=== PATIENT | male | born 1960 | race Two or more races ===

== ENCOUNTER 2025-03-02 12:02 | Inpatient (IN) | payer BC, MEDICAID ==
[~2025-03-02] VITALS: Ht 170.2 cm; Wt 70.0 kg
[~2025-03-02 12:02] MED LIST: ASPI-4 PO; IBUP-1984 PO
[2025-03-02 13:58] LABS: MEAN PLATELET VOLUME 9.7 FL (7.4-10.4); RED CELL DISTRIBUTION WIDTH 15.4 % (11.5-14.5)
[2025-03-02 14:07] LABS: CREATININE 0.82 MG/DL (0.60-1.10); TOTAL CARBON DIOXIDE 26.6 MMOL/L (24-32); eCRCL 86 ML/MIN; eGFR > 90 ML/MIN
[2025-03-02] MEDS ORDERED: iohexol 300mg/ml 100ml inj. ONE (14:10)
--- NOTE | 2025-03-02 14:42 | RADIOLOGY REPORT ---
Indication: Diffuse ABD pain and distension. Technique: CT axial images of the abdomen and pelvis are obtained with intravenous contrast. Coronal and sagittal reformats were obtained. Radiation Dose Information: CTDI volume is 26 mGy. Dose-length product is 1364 mGy*cm Comparison: None FINDINGS: Heart size within normal limits. Moderate right and small left pleural effusions Adrenal glands unremarkable. Spleen is enlarged measuring 21 cm craniocaudal. Cirrhotic morphology liver. Recanalized umbilical vein. Severe gastric wall thickening. Kidneys demonstrate no hydronephrosis. m extensive mesenteric conglomerate lymphadenopathy measuring 15.2 x 11.5 by 6.7 cm. Peritoneal carcinomatosis/ omental caking. Moderate volume of ascites fluid. Colonic diverticular disease. Moderate volume stool in the colon. Abdominal aortic atherosclerotic disease. Coalesce and retroperitoneal lymphadenopathy encasing the aorta and IVC. Bladder is partially distended. Right inguinal hernia containing ascites fluid measuring 7.4 x 5.2 cm. Soft tissue edema/anasarca. Moderate bilateral sacroiliac degenerative joint disease. Moderate thoracolumbar degenerative disc disease. IMPRESSION: Extensive conglomerate mesenteric lymphadenopathy, retroperitoneal lymphadenopathy, omental caking and peritoneal carcinomatosis, consistent with malignancy . Correlate for prior malignancy site. Recommend oncology consultation. Diffuse severe gastric wall thickening which could represent primary gastric neoplasm /gastric lymphoma. Recommend GI consultation. Massive splenomegaly. Liver capsule nodular morphology could represent sequela of cirrhosis. Sequela of portal hypertension including recanalized umbilical vein. Moderate right and small left pleural effusions. Soft tissue edema/ anasarca. Other findings as described.
[2025-03-02 14:46] LABS: LYMPHOCYTES % (MANUAL) 40.0 % (21-51); MONOCYTES % (MANUAL) 4.0 % (2-12); NEUTROPHILS % (MANUAL) 28.0 % (42-75); REACTIVE LYMPHOCYTES % 28.0 % (0-0)
[2025-03-02 14:47] LABS: PLATELET ESTIMATE NORMAL
--- NOTE | 2025-03-02 15:37 | Physician Documentation ---
History of Present Illness Chief Complaint: Abdominal Pain Stated Complaint: UPPER ABDOMINAL DISTENTION Time Seen by MD: 13:18 Primary Medical Doctor: No PMD Source: patient Mode of Arrival: POV, Ambulatory Exam Limitations: no limitations HPI Mr. Navas is a 64 y/o male who presents with c/o ABD pain and distention. He states that he has noticed he abdomen becoming more and more distended over the past 3-4 months. He also reports that he has loss 60 pounds (210 --> 150) over the past 4 months. He denies N/V/D. No BRBPR or melena. No recent trauma. No recent ABD trauma. No history of recent heavy alcohol use. No dysuria/hematuria. Medication Reconciliation Allergies: Coded Allergies: acetaminophen (Unverified Adverse Reaction, Severe, PARANOIA, 01/23/15) hydrocodone (Unverified Adverse Reaction, Severe, PARANOIA, 01/23/15) Scheduled Ibuprofen* (Motrin*), 600 MG PO DAILY, (Reported) Scheduled PRN Aspirin (Coated Aspirin), 325 MG PO DAILY PRN for pain, (Reported) Past Medical History Past Medical History: Diabetes Past Surgical History: no surgical history Alcohol Use: None Review of Systems All Other Systems at this time: Reviewed and Negative ROS As stated above in the HPI, otherwise all systems are reviewed and negative. Physical Exam Vital Signs: RN Vital Signs have been reviewed: Yes, Temperature: 98.1, Source: Temporal, Heart Rate: 70, Respiratory Rate: 16, BP: 144/84, Pulse Oximetry: 99, Weight: 70.000 Oxygen Flow Rate: 0 Physical Exam VITALS: Reviewed and as above. GENERAL: Alert, no apparent distress. HEENT: Normocephalic, atraumatic, PERRL, EOMI, dry mucosa, no erythema. No scleral icterus. RESPIRATORY: Lungs clear, normal breath sounds, no respiratory distress. CHEST: No accessory muscle use, no retractions CV: Regular rate, rhythm, no edema, no murmur, No: JVD GI: Significant ABD distention. Distant bowel bounds. No rebounding or guarding. BACK: No CVA tenderness, or swelling MUSCULOSKELETAL 2+ pitting lower extremity edema. SKIN: Warm and dry, no rash NEURO: Oriented x4, No motor or sensory deficit PSYCH: Normal mood and affect, no agitation Progress Results/Orders Results/Orders Orders - CLOTILDE PERAZA MD Urinalysis, Cult If Indicated (03/02/25 13:19) Cbc/Diff (03/02/25 13:19) Man Diff (03/02/25 13:30) Ct Abdomen Pelvis (03/02/25 14:01) Pathology Review (03/02/25 13:30) Completed Orders - CLOTILDE PERAZA MD BMP (03/02/25 13:19) Lipase (03/02/25 13:19) CMP (03/02/25 13:19) Ct Abdomen Pelvis (03/02/25 14:01) Iohexol 300mg/Ml 100ml Inj. (Omnipaque-3 (03/02/25 14:10) Vital Signs 03/02/25 03/02/25 03/02/25 03/02/25 12:11 12:15 13:13 13:15 Temp 98.1 Pulse 90 73 67 Resp 16 16 20 B/P (MAP) 122/92 131/83 (99) 131/83 (99) Pulse Ox 97 98 97 O2 Flow Rate 0 0 0 03/02/25 14:15 Pulse 70 Resp 16 B/P (MAP) 144/84 (104) Pulse Ox 99 O2 Flow Rate 0 Laboratory Tests Test 03/02/25 13:30 White Blood Count 13.4 H Red Blood Count 5.19 Hemoglobin 14.4 Hematocrit 44.6 Mean Corpuscular Volume 85.9 Mean Corpuscular Hemoglobin 27.7 Mean Corpuscular Hemoglobin Concent 32.2 L Red Cell Distribution Width 15.4 H Platelet Count 182 Mean Platelet Volume 9.7 Neutrophils (%) (Auto) 30.5 L Lymphocytes (%) (Auto) 63.5 H Monocytes (%) (Auto) 4.7 Eosinophils (%) (Auto) 0.7 Basophils (%) (Auto) 0.6 Neutrophils # (Auto) 4.1 Lymphocytes # (Auto) 8.5 H Monocytes # (Auto) 0.6 Eosinophils # (Auto) 0.1 Basophils # (Auto) 0.1 CBC Comment Differential Total Cells Counted 100 Neutrophils % (Manual) 28.0 L Lymphocytes % (Manual) 40.0 Monocytes % (Manual) 4.0 Reactive Lymphocytes 28.0 H Smudge Cells 1+ Platelet Estimate Normal Red Blood Cell Morphology Normal Basophilic Stippling Sodium Level 146 H Potassium Level 3.8 Chloride Level 112 H Carbon Dioxide Level 26.6 Anion Gap 7 L Blood Urea Nitrogen 19 H Creatinine 0.82 Estimated GFR/1.73 m2 > 90 BUN/Creatinine Ratio 23.2 H Glucose Level 94 Calcium Level 8.4 L Total Bilirubin 0.4 Aspartate Amino Transf (AST/SGOT) 31 Alanine Aminotransferase (ALT/SGPT) 8 L Alkaline Phosphatase 61 Total Protein 6.2 L Albumin 2.6 L Globulin 3.6 Albumin/Globulin Ratio 0.7 L Lipase 16 Chemistry Comments Medical Decision Making Differential Dx:Considerations: Include: AAA, Aortic dissection, Appendicitis, Bowel obstruction, Constipation, Diverticular disease, Hernia, Inflammatory BD, Ischemic bowel, Pancreatitis, Urinary tract infection Additional Comments While here in the ED, he remained hemodynamically normal with ABC's intact and in NAD. He is afebrile and nontoxic. I reviewed his labs and there are no significant gross abnormalities. LFT's and lipase normal. Normal renal function. My concern is for malignancy so sent for CT ABD/Pelvis. CT with findings concerning for malignancy. Will be updated for further work-up. Departure Disposition: ADMITTED INPATIENT Admitted to Inpatient Unit: yes, to hospitalist Impression: Primary Impression: Abdominal distension Additional Impressions: Ascites Anasarca Abdominal pain Condition: Stable Discharge Instructions: Abdominal Pain (Nonspecific) Referrals: NO PRIMARY CARE PROVIDER (PCP) Education Educated: Patient Educated regarding: diagnosis, treatment Signature Scribe Signature: N/A Attestation: N/A CLOTILDE PERAZA MD Mar 02, 2025 15:37
[2025-03-02] MEDS ORDERED: ondansetron 4mg rapidly disintigrating tab PO PRN (15:40)
[2025-03-02] MEDS ORDERED: morphine 4 MG/ML inj SYRINge IV PRN (15:40)
[2025-03-02] MEDS ORDERED: magnesium sulf-water 4G/100mL 100 ML IV PRN (15:40)
[2025-03-02] MEDS ORDERED: magnesium hydroxide 30ml (MOM) UD suspension PO PRN (15:40)
[2025-03-02] MEDS ORDERED: bisacodyl 10mg suppository rectal RC PRN (15:40)
[2025-03-02] MEDS ORDERED: ondansetron/PF 4mg/2ml inj IV PRN (15:40)
[2025-03-02] MEDS ORDERED: magnesium Cl slow-release 64mg tablet PO PRN (15:40)
[2025-03-02] MEDS ORDERED: mag hydrox/Alum hydrox/simeth 30ml oral suspension PO PRN (15:40)
[2025-03-02] MEDS ORDERED: magnesium sulf-water 2g/50mL 50 ML IV PRN (15:40)
[2025-03-02] MEDS ORDERED: potassium Cl 20 mEq SR tablet PO PRN ×2 (15:40)
[2025-03-02] MEDS ORDERED: potassium Cl 40MEQ/1/2NS 520ml 520 ML IV PRN (15:40)
[2025-03-02] MEDS ORDERED: HYDROmorphone inj. 0.5 MG/0.5 ML DISP.SYRIN IV PRN (15:40)
[2025-03-02 16:12] LABS: APTT 26 SECONDS (22-32); INR 1.1 INR
[2025-03-02] MEDS: CefTRIAXone/D5W-Rocephin 1gm 50 ML IV SCH (16:12)
[2025-03-02 16:21] LABS: LACTATE DEHYDROGENASE 292 U/L (85-227); PHOSPHORUS 4.4 MG/DL (2.3-4.5); PRO BRAIN NATRIURETIC PEPTIDE 497 PG/ML (0-125)
[2025-03-02 16:39] LABS: ABSOLUTE RETICS # 30600.0 /CUMM (23000-93000)
--- NOTE | 2025-03-02 16:41 | HISTORY AND PHYSICAL ---
History & Physical Providers to CC ~ chief complaint, abdominal distention History of Present Illness Reason for Admit\Complaint: As above History of Present Illness Mr. Navas is a 64 y/o male, relatively in good health previously, on no home medications, except history of chronic tobacco abuse including currently, and history of hypertension presented today to emergency department chief complaint abdominal distention; in addition this is the patient who presents with c/o ABD pain and distention. He states that he has noticed he abdomen becoming more and more distended over the past 3-4 months. He also reports that he has loss 60 pounds (210 --> 150) over the past 4 months. He denies N/V/D. No BRBPR or melena. No recent trauma. No recent ABD trauma. No history of recent heavy alcohol use. No dysuria/hematuria. Emergency department he was evaluated by physician, was diagnosed with a anasarca, peritoneal carcinomatosis, multiple abdominal lymphadenopathy, gastric neoplasm rule out, massive splenomegaly, liver cirrhosis, portal hypertension, bilateral pleural effusion right more than left, hypernatremia, hypertension, and decision was made to admit patient for further evaluation treatment. No additional complaint or concern. Allergies: Coded Allergies: acetaminophen (Unverified Adverse Reaction, Severe, PARANOIA, 01/23/15) hydrocodone (Unverified Adverse Reaction, Severe, PARANOIA, 01/23/15) Active prescriptions I reviewed reconciled Home Medications Home Medications Active Reported Coated Aspirin (Aspirin) 325 Mg Tablet 325 Mg PO DAILY PRN Motrin* (Ibuprofen) 400 Mg Tablet 600 Mg PO DAILY Past Medical History Past Medical History As in HPI Past Surgical History Surgical History Comment As in HPI Past Social History Social History Comment Deny illicit drug use, no alcohol use positive for chronic tobacco abuse including currently, live with the family good social support Health Maintenance Health Maintenance Noncontributory ROS ROS Constitutional : no fever , no chills, or weakness. No diaphoresis. Allergic/Immunologic, no lymphadenopathy, no hives, no skin eruptions. Eyes, no recent visual changes, no eye pain, no photophobia. Ears, nose, mouth, throat, no sore throat, no nosebleed, no ear pain. Cardiovascular, no palpitations, skipped beats, chest pain, no peripheral edema, Respiratory, no dyspnea, orthopnea, cough, hemoptysis, chest wall pain. Gastrointestinal, no abdominal pain, nausea, vomiting, constipation or diarrhea. Positive for abdominal distention : no dysuria, hematuria, pelvic pain, urethral d/c. Endocrine, no polyuria, polydipsia, recent unintentional weight gain or loss. Hematologic/Lymphatic, no petechiae, no enlarged lymph nodes, no bone pain. Integumentary, no rash, no skin lesions, Musculoskeletal, no muscle aches, or pain, no muscle cramps, no recent change in gait, positive for bilateral lower extremity edema Neurological, no dizziness, no headache, no syncope, no paresthesia. Psychiatric, no delusions, visual hallucinations, or hearing hallucinations. ROS - in rest is as in HPI. Exam Vitals: Vital Signs Date Time Temp Pulse Resp B/P (MAP) Pulse Ox O2 Delivery O2 Flow Rate FiO2 03/02/25 14:15 70 16 144/84 (104) 99 0 03/02/25 12:11 98.1 Vital signs, stable ,afebrile. Pulse Oximetry reflects adequate oxygenation. BMI is 24, weight 70 kg General: well developed, well nourished. Awake , alert, and oriented x4, resting comfortably in the bed, in no acute distress . Skin: Warm, dry, no pallor, no rash or petechiae. HEENT: Atraumatic, normocephalic, EOMI, anicteric sclera B; pink conjunctiva; PERRLA, normal oropharynx, moist oral and nasal mucosa. Tympanic membrane , nose , throat clear. Neck: Trachea midline. Supple, full range of motion, no JVD, bruit , hepatojugular reflex , lymphadenopathy or masses, or other lesions Cardiac: Regular rhythm, regular rate no murmurs, rubs, or gallops. Normal S1 and S2, no S3 noticed. PMI is normal. Respiratory: Equal breath sounds bilaterally, no tachypnea; lungs clear to auscultation bilaterally, no wheezing ,rub or rales, or crackles. Chest wall is symmetric and without deformity. No signs of trauma. Chest wall is nontender. No signs of respiratory distress. Resonance is normal upon percussion bilaterally. Gastrointestinal: Abdomen symmetric, distended, soft, non-tender, normal bowel sounds x4 quadrant, normoactive, no hepatosplenomegaly , no masses , no bruit, no flank pain bilaterally. No voluntary guarding, rebound, or rigidity. No tenderness to percussion. No pulsatile masses. Equal femoral pulses. No Sy's sign or McBurney point tenderness. Back; no CVA tenderness bilaterally, no deformities. Neck and back are without deformity as well. No tenderness noted on palpation of the spinous processes. Spinous processes are midline. Cervical, thoracic, and lumbar paraspinal muscles are not tender and are without spasm. : normal external genitalia, without lesions, swelling, masses or tenderness. Musculoskeletal: Extremities, normal range of motion, non-tender, muscle strength 5/5 x 4. Negative Homans signs bilaterally on lower extremity. Distal pulses full symmetrical, no clubbing, cyanosis; bilateral lower extremity + four edema up to the thigh Neurological: Speech is clear, alert, and oriented x 4. No motor or sensory deficit, deep tendon reflexes normal, cerebellar intact. Cranial nerves II-XII intact. Psych: Alert and or appropriate, normal affect. Vascular: Good distal pulses, which are equal x4; capillary refill less than 2 seconds. Lymphatic, no lymphadenopathy. Diagnostic Data Last Recorded Lab Results: 03/02/25 1330 03/02/25 1330 Diagnostic Data: Laboratory Tests Test 03/02/25 13:30 Prothrombin Time 10.9 SECONDS (9.0-12.0) INR International Normalized Ratio 1.1 INR Activated Partial Thromboplast Time 26 SECONDS (22-32) D-Dimer Comment Coagulation Comments Advance Care Planning Advanced Care plannin - 30 Minutes Additional Plan Assessment Peritoneal carcinomatosis Anasarca Multiple abdominal lymphadenopathy Gastric neoplasm, rule out lymphoma Massive splenomegaly Liver cirrhosis associated with portal hypertension Bilateral pleural effusion right more than left Leukocytosis rule out sepsis Hyper natremia Hypertension fair control Plan IV Lasix, antibiotics CT of the chest pending additional lab work pending bilateral lower extremity ultrasound pending Blood culture sensitivity Consulted for 5 minutes to stop using tobacco patient agrees started to nicotine patch GI doctor consult I reconciled home medications DVT gastropathy prophylaxis addressed Sepsis Screening Reassessment Date: Mar 02, 2025 Date of Service: Mar 02, 2025 Billing Provider: RITCHIE HAWKINS MD Common Visit Codes: 69741-[id number] INP/OBS CARE (HIGH) Secondary Visit Codes: 13450-OBIYC CHNG SMOKING 3-10M, [id number] CARE PLAN 30 MINUTES RITCHIE HAWKINS MD Mar 02, 2025 16:41
[2025-03-02 16:45] LABS: LEUKOCYTE ESTERASE ,URINE NEGATIVE (Neg); NITRITES, URINE NEGATIVE (Neg); OCCULT BLOOD,URINE NEGATIVE (Neg)
[2025-03-02 16:50] LABS: UA COLLECTION TYPE NON-SPECIFIED
[2025-03-02 16:54] LABS: URINE AMPHETAMINE SCREEN NEGATIVE (Neg); URINE BARBITUATE SCREEN NEGATIVE (Neg); URINE BENZODIAZEPINES SCREEN NEGATIVE (Neg); URINE CANNABINOID SCREEN NEGATIVE (Neg); URINE COCAINE SCREEN NEGATIVE (Neg); URINE METHADONE SCREEN NEGATIVE (Neg); URINE OPIATE SCREEN NEGATIVE (Neg); URINE PHENCYCLIDINE SCREEN NEGATIVE (Neg)
--- NOTE | 2025-03-02 17:01 | RADIOLOGY REPORT ---
EXAM: CT CT CHEST INDICATION: Distant MT, gastrc CA TECHNIQUE: Noncontrast axial images of the chest have been obtained along with coronal and sagittal reformatted images. All CT scans at this facility use dose modulation, iterative reconstruction, and/or weight based dosing when appropriate to reduce radiation dose to as low as reasonably achievable. COMPARISON: None FINDINGS: LOWER NECK: Unremarkable LYMPH NODES/MEDIASTINUM: Large right lower paratracheal lymph node, 2 x 1.6 cm. CARDIOVASCULAR: Normal cardiac size. Small pericardial effusion. No aneurysmal dilatation of the great vessels. No significant coronary artery calcifications. UPPER ABDOMEN: Significant circumferential wall thickening of the stomach compatible with neoplastic involvement and correlate for linitis plastica. Splenomegaly phleboliths in the pelvis. refer to concurrent CT abdomen pelvis for further description MUSCULOSKELETAL: No acute fracture or aggressive focal osseous lesion. CHEST WALL: Unremarkable. LUNG PARENCHYMA/PLEURAL SPACE: Small to medium right-sided and trace left pleural effusions. Peribronchial thickening in bilateral lung bases. No consolidation. Compressive atelectasis in bilateral lung bases. IMPRESSION: 1. Significant circumferential wall thickening of the stomach compatible with neoplastic involvement and correlate for linitis plastica. 2. Small to medium right-sided and trace left pleural effusions. 3. Peribronchial thickening in bilateral lung bases. 4. Large right lower paratracheal lymph node.
[2025-03-02 17:08] LABS: HIV ANTIBODY 1&2 RAPID NON-REACTIVE (Neg)
--- NOTE | 2025-03-02 19:13 | VASCULAR REPORT ---
CLINICAL HISTORY: Left leg swelling TECHNIQUE: Color and duplex doppler imaging of the bilateral lower extremity veins was performed. Vessel compression if possible was also performed. WID: COMPARISON: None FINDINGS: Right Lower Extremity: Right common femoral vein: Normal compressibility and flow. Right femoral vein: Normal compressibility and flow. Right popliteal vein: Normal compressibility and flow. Proximal calf veins are normally compressible. Left Lower Extremity: Left common femoral vein: Normal compressibility and flow. Left femoral vein: Normal compressibility and flow. Left popliteal vein: Normal compressibility and flow. Proximal calf veins are normally compressible. Enlarged left inguinal lymph node which is Reactive appearing measured 5.5 x 1.4 x 2.9 cm. Subcutaneous edema in the bilateral lower extremities in the calves. IMPRESSION: 1. NO SONOGRAPHIC EVIDENCE FOR DEEP VENOUS THROMBOSIS IN THE BILATERAL LOWER EXTREMITY VEINS. 2. Subcutaneous edema in the bilateral calves.
[2025-03-02 20:00] VITALS: BP 109/65; PULSE 57; RESP 18; TEMP 98; O2SAT 95
[2025-03-02] MEDS: K and/or MAG REPLACEMENT MC SCH (21:28)
[2025-03-02 22:00] VITALS: BP 110/66; PULSE 58; RESP 18; TEMP 98; O2SAT 96
[2025-03-02] MEDS: docusate sod 100mg capsule PO SCH (22:13)
[2025-03-03] VITALS (13 sets, daily range): BP systolic 97–123; BP diastolic 59–78; PULSE 50–84; RESP 15–20; TEMP 97.3–97.9; O2SAT 94–99
[2025-03-03] MEDS ORDERED: IBUP-2697 PO (00:43)
[2025-03-03] MEDS ORDERED: ONDA-103 PO (01:00)
[2025-03-03 06:50] LABS: MEAN PLATELET VOLUME 9.4 FL (7.4-10.4); RED CELL DISTRIBUTION WIDTH 15.2 % (11.5-14.5)
[2025-03-03 07:14] LABS: CHOL/HDL RATIO 5.0 (0.00-4.99); CREATININE 0.85 MG/DL (0.60-1.10); LDL CHOLESTEROL 86 MG/DL (50-100); TOTAL CARBON DIOXIDE 28.4 MMOL/L (24-32); eCRCL 83 ML/MIN; eGFR > 90 ML/MIN
[2025-03-03] MEDS ORDERED: nicotine 14mg patch - 24hr TD SCH (08:00)
[2025-03-03] MEDS: pantoprazole 40mg Tablet.DR PO SCH (08:05)
--- NOTE | 2025-03-03 09:18 | PROGRESS NOTE ---
Daily Progress Note Providers to CC Feels better today, less distention in the abdomen, awaiting to go to EGD ~ Central Line/PICC still needed: No Crandall-Non Protocol Crandall Indications Met/Not Met: F/C Indications Not Met Antibiotic Timeout Antibiotic Ordered?: Yes MRSA Education MRSA Education Provided to pt: Yes Subjective As above Objective Vital Signs Date Time Temp Pulse Resp B/P (MAP) Pulse Ox O2 Delivery O2 Flow Rate FiO2 03/03/25 06:30 60 03/03/25 02:00 97.5 20 119/72 (88) 96 Room Air 03/02/25 19:15 0 Vital signs, stable ,afebrile. Pulse Oximetry reflects adequate oxygenation. General: well developed, well nourished. Awake , alert, and oriented x4, resting comfortably in the bed, in no acute distress . Skin: Warm, dry, no pallor, no rash or petechiae. HEENT: Atraumatic, normocephalic, EOMI, anicteric sclera B; pink conjunctiva; PERRLA, normal oropharynx, moist oral and nasal mucosa. Tympanic membrane , nose , throat clear. Neck: Trachea midline. Supple, full range of motion, no JVD, bruit , hepatojugular reflex , lymphadenopathy or masses, or other lesions Cardiac: Regular rhythm, regular rate no murmurs, rubs, or gallops. Normal S1 and S2, no S3 noticed. PMI is normal. Respiratory: Equal breath sounds bilaterally, no tachypnea; lungs clear to auscultation bilaterally, no wheezing ,rub or rales, or crackles. Chest wall is symmetric and without deformity. No signs of trauma. Chest wall is nontender. No signs of respiratory distress. Resonance is normal upon percussion bilaterally. Gastrointestinal: Abdomen symmetric, distended, soft, non-tender, normal bowel sounds x4 quadrant, normoactive, no hepatosplenomegaly , no masses , no bruit, no flank pain bilaterally. No voluntary guarding, rebound, or rigidity. No tenderness to percussion. No pulsatile masses. Equal femoral pulses. No Sy's sign or McBurney point tenderness. Back; no CVA tenderness bilaterally, no deformities. Neck and back are without deformity as well. No tenderness noted on palpation of the spinous processes. Spinous processes are midline. Cervical, thoracic, and lumbar paraspinal muscles are not tender and are without spasm. : normal external genitalia, without lesions, swelling, masses or tenderness. Musculoskeletal: Extremities, normal range of motion, non-tender, muscle strength 5/5 x 4. Negative Homans signs bilaterally on lower extremity. Distal pulses full symmetrical, no clubbing, cyanosis , edema. Neurological: Speech is clear, alert, and oriented x 4. No motor or sensory deficit, deep tendon reflexes normal, cerebellar intact. Cranial nerves II-XII intact. Psych: Alert and or appropriate, normal affect. Vascular: Good distal pulses, which are equal x4; capillary refill less than 2 seconds. Lymphatic, no lymphadenopathy. Result Diagram: 03/03/2530 03/03/2530 Coagulation Studies Laboratory Tests Test 03/02/25 13:30 Prothrombin Time 10.9 SECONDS (9.0-12.0) INR International Normalized Ratio 1.1 INR Activated Partial Thromboplast Time 26 SECONDS (22-32) D-Dimer 1.88 MG/L FEU (0-0.50) H D-Dimer Comment Coagulation Comments Problem\Assessment\Plan Assessment Peritoneal carcinomatosis Anasarca Multiple abdominal lymphadenopathy Gastric neoplasm, rule out lymphoma, EGD today Massive splenomegaly Liver cirrhosis associated with portal hypertension Bilateral pleural effusion right more than left Leukocytosis rule out sepsis Hyper natremia Hypertension fair control Plan IV Lasix, antibiotics CT of the chest completed additional lab work pending bilateral lower extremity ultrasound completed Blood culture sensitivity Fluid restriction diet GI doctor consult completed, appreciate assistance and expertise I reconciled home medications DVT gastropathy prophylaxis addressed Sepsis Screening Reassessment Date: Mar 03, 2025 Date of Service: Mar 03, 2025 Billing Provider: RITCHIE HAWKINS MD Common Visit Codes: [id number] INP/OBS CARE(HIGH) RITCHIE HAWKINS MD Mar 03, 2025 09:18
[2025-03-03] MEDS ORDERED: propofol inj 20 ML IV ONE (09:53)
--- NOTE | 2025-03-03 18:35 | CARDIOLOGY REPORT ---
APPROVED REPORT EXAM: Comprehensive 2D, Doppler, and color-flow Echocardiogram. Patient Location: ED8 Blood Pressure: 144/84 mmHg Heart Rate: 62 bpm Rhythm: NSR Indications CHF Diabetes No vice president tax No previous echo 2D Dimensions LA Diam 4.6 cm IVSd 1.0 (0.7-1.1cm) LVDd 4.8 cm PWd 1.1 (0.7-1.1cm) IVSs 1.6 (0.8-1.2cm) LVDs 2.9 (2.5-4.0cm) Aortic Root(2D) 3.2 cm PWs 1.5 (0.8-1.2cm) LVOT Diameter 2.12 (1.8-2.4cm) LVEF(%) 68.7 (>50%) Ao Asc Diam. 2.97 cm IVC 10.21 mm FS (%) 38.4 % SV 72.8 ml CO 4.6 L/min M-Mode Dimensions MV EPSS 0.6 (<0.5cm) Aortic Valve AoV Peak Miko. 170.6 cm/s AoV VTI 35.8 cm AO Peak GR. 11.6 mmHg AO Mean GR. 6 mmHg LVOT VTI 33.06 cm LVOT Peak Miko. 157.2 cm/s NORA(VTI)/BSA 3.26 cm2/m2 NORA (VTI) 3.26 cm2 Mitral Valve MV E Velocity 66.3 cm/s MV Peak Gr. 3 mmHg MV DECEL TIME 216 ms MV A Velocity 99.4 cm/s MV PHT 60 ms E/A Ratio 0.7 MVA (PHT) 3.67 cm2 MV VMax 91.2 cm/s TDI Medial E' P. V 9.16 cm/s E/Medial E' 7.2 Tricuspid Valve TR P. Velocity 274 cm/s RAP ESTIMATE 10 mmHg TR Peak Gr. 30 mmHg RVSP 40 mmHg Pulmonary Vein S1 Velocity 86.6 cm/s D2 Velocity 39.9 cm/s PVa Velocity 25.1 cm/s PVa Duration 92 msec LEFT VENTRICLE Normal LV size and wall thickness. Overall systolic function is normal. Overall LVEF is 65%. RIGHT VENTRICLE RV appears mildly to moderately dilated with normal contractility. RVSP is estimated at 40 mmHG. ATRIA Left atrium is moderately dilated. AORTIC VALVE Trileaflet AV appears sclerotic without stenosis. Trace insufficiency. MITRAL VALVE MV is thickened with no annular calcifaction or stenosis. Trace to mild mitral regurgitation. TRICUSPID VALVE The tricuspid valve is normal in structure. Trace tricuspid regurgitation. PULMONIC VALVE The pulmonary valve is normal in structure. Trace pulmonic insufficiency. GREAT VESSELS The aortic root is normal in size. The ascending aorta is normal in size. The IVC is normal in size and collapses >50% with inspiration. PERICARDIUM Trace posterior pericardial effusion with no evidence of hemodynamic compromise. Ascites present. Left Plueral effusion. Other Information Study Quality: Adequate Conclusion Overall LVEF is 65%. Normal LV size and wall thickness. Overall systolic function is normal. RV appears mildly to moderately dilated with normal contractility. RVSP is estimated at 40 mmHG. Trileaflet AV appears sclerotic without stenosis. Trace insufficiency. Trace to mild mitral regurgitation. Trace tricuspid regurgitation. Left Plueral effusion.
[2025-03-03] MEDS: lactose-reduced food (Ensure Enlive) - 237ml bottle PO SCH (18:49)
[2025-03-03] MEDS ORDERED: docusate sod 100mg capsule PO PRN (19:50)
[2025-03-04] VITALS (8 sets, daily range): BP systolic 105–114; BP diastolic 61–77; PULSE 55–63; RESP 14–23; TEMP 97–98.4; O2SAT 92–98
--- NOTE | 2025-03-04 01:16 | CONSULTATION ---
DATE OF CONSULTATION: 03/03/2025 DICTATING PHYSICIAN: Rajendra Zhang MD REASON FOR CONSULTATION: The patient came in because of discomfort due to progressive abdominal distention. HISTORY OF PRESENT ILLNESS: The patient is 64 years old, has a history of excessive alcohol drinking for about 25 years in younger age, comes in because of progressive abdominal distention. He has also had 60-pound weight loss in the past 3 months. Appetite is poor. The patient does not give much other history anymore. He denies having had any GI bleeding in the form of melena or hematochezia. Since he came in, it has been noted that he does have end-stage liver disease with cirrhotic liver with massive ascites and very significant splenomegaly with portal hypertension with portocaval anastomosis. What is also noteworthy in the imaging studies is what appears like peritoneal carcinomatosis including massive mesenteric lymphadenopathy and significant gastric wall thickening. Suspicion is this could be a primary gastric neoplasm including adenocarcinoma, possibly linitis plastica kind or even possible gastric lymphoma. The patient has no other symptoms at this time. PAST MEDICAL HISTORY: As above. FAMILY HISTORY: Noncontributory. PERSONAL HISTORY: Noncontributory. REVIEW OF SYSTEMS: A 12-point review of systems is essentially the same as history of present illness. PHYSICAL EXAMINATION: On physical exam, he is awake, alert, and appears to be in no apparent distress. He is friendly and cooperative. Vital signs are normal. Neck is supple. No thyromegaly. No JVD. No significant lymphadenopathy. Abdomen is significantly distended with fluid wave, nontender. No masses. Palpable bowel sounds are present. CN is within normal limits. There is no evidence of any asterixis. He does have 2+ pitting pedal edema. LABORATORY DATA: Laboratory values were reviewed, which revealed acceptable hemoglobin, platelet count, and coagulation profile. Albumin was 2.6. The CT scan findings are very impressive as mentioned above. IMPRESSION: A 64-year-old gentleman admitted with what appears like advanced liver disease, possibly end-stage liver disease with portal hypertension; however, not in any hepatic failure by definition. Also incidentally, the patient has 60-pound weight loss in spite of fluid retention, which is very alarming. The CT findings corroborate that and seems like he does have extensive carcinomatosis in his abdominal cavity in the mesentery, possibly primary gastric. RECOMMENDATIONS: Diagnostic endoscopy this morning. We will attempt to obtain tissue diagnosis. Prognosis and treatment options are minimal if this is advanced carcinomatosis in the abdomen. Risks and benefits explained, understands and wishes to proceed. Further recommendations will be made after the endoscopy. Rajendra Zhang MD TID: [id number] RECEIPT: [id number] SAMANTHA/Emilia Purvis
[2025-03-04 06:30] LABS: RED CELL DISTRIBUTION WIDTH 15.0 % (11.5-14.5)
[2025-03-04 06:32] LABS: MEAN PLATELET VOLUME 9.2 FL (7.4-10.4)
[2025-03-04 07:20] LABS: CREATININE 0.88 MG/DL (0.60-1.10); TOTAL CARBON DIOXIDE 30.0 MMOL/L (24-32); eCRCL 80 ML/MIN; eGFR 87 ML/MIN
--- NOTE | 2025-03-04 09:13 | RADIOLOGY REPORT ---
Ultrasound abdomen INDICATION: ABDOMINAL DISTENTION; ASCITES Comparison: CT abdomen done 03/02/2025 Technique: 2-D real-time ultrasound was performed with axial and sagittal images submitted for evaluation. FINDINGS: Liver is echogenic with a nodular margin. No focal masses present. Cephalocaudal dimension is 12.91 cm Spleen enlarged measuring 18 cm Ascites is present No gallstones or gallbladder wall thickening Common duct normal in size 5 mm Right kidney 8.5 cm. Left kidney 8.6 cm. No renal masses stones or hydronephrosis. Poor visualization of of the retroperitoneal structures due to overlying bowel gas IMPRESSION: 1. Cirrhosis of the liver with signs of portal hypertension manifesting as ascites and splenomegaly
--- NOTE | 2025-03-04 10:54 | RADIOLOGY REPORT ---
NUCLEAR MEDICINE VENTILATION/PERFUSION LUNG SCAN. INDICATION: Narcan pleural effusions, shortness of breath, rule out PE, thank you, MB COMPARISON: None TECHNIQUE: Following intravenous demonstration of 6 millicuries of technetium 99m MAA, and inhalation of 40 mCi of Tc 99m DTPA scintigrams were obtained in multiple projections of the lungs. FINDINGS: There is normal uptake of radionuclide on both the ventilation and perfusion portions of the examination. No mismatched perfusion defects are demonstrated. Uptake is normally homogeneous. IMPRESSION: 1. Low probability for PE.
--- NOTE | 2025-03-04 17:03 | PROGRESS NOTE ---
Daily Progress Note Providers to CC Complaint today, resting comfortably in the bed just completed V/Q test ~ Central Line/PICC still needed: No Crandall-Non Protocol Crandall Indications Met/Not Met: F/C Indications Not Met Antibiotic Timeout Antibiotic Ordered?: Yes MRSA Education MRSA Education Provided to pt: Yes Subjective As above Objective Vital Signs Date Time Temp Pulse Resp B/P (MAP) Pulse Ox O2 Delivery O2 Flow Rate FiO2 03/04/25 15:00 97.8 63 15 109/66 (80) 95 Room Air 03/03/25 10:40 0.0 Vital signs, stable ,afebrile. Pulse Oximetry reflects adequate oxygenation. General: well developed, well nourished. Awake , alert, and oriented x4, resting comfortably in the bed, in no acute distress . Skin: Warm, dry, no pallor, no rash or petechiae. HEENT: Atraumatic, normocephalic, EOMI, anicteric sclera B; pink conjunctiva; PERRLA, normal oropharynx, moist oral and nasal mucosa. Tympanic membrane , nose , throat clear. Neck: Trachea midline. Supple, full range of motion, no JVD, bruit , hepatojugular reflex , lymphadenopathy or masses, or other lesions Cardiac: Regular rhythm, regular rate no murmurs, rubs, or gallops. Normal S1 and S2, no S3 noticed. PMI is normal. Respiratory: Equal breath sounds bilaterally, no tachypnea; lungs clear to auscultation bilaterally, no wheezing ,rub or rales, or crackles. Chest wall is symmetric and without deformity. No signs of trauma. Chest wall is nontender. No signs of respiratory distress. Resonance is normal upon percussion bilaterally. Gastrointestinal: Abdomen symmetric, distended, positive wave sign, consistent with ascites, not tense, soft, non-tender, normal bowel sounds x4 quadrant, normoactive, no hepatosplenomegaly , no masses , no bruit, no flank pain bilaterally. No voluntary guarding, rebound, or rigidity. No tenderness to percussion. No pulsatile masses. Equal femoral pulses. No Sy's sign or McBurney point tenderness. Back; no CVA tenderness bilaterally, no deformities. Neck and back are without deformity as well. No tenderness noted on palpation of the spinous processes. Spinous processes are midline. Cervical, thoracic, and lumbar paraspinal muscles are not tender and are without spasm. : normal external genitalia, without lesions, swelling, masses or tenderness. Musculoskeletal: Extremities, normal range of motion, non-tender, muscle strength 5/5 x 4. Negative Homans signs bilaterally on lower extremity. Distal pulses full symmetrical, no clubbing, cyanosis , edema. Neurological: Speech is clear, alert, and oriented x 4. No motor or sensory deficit, deep tendon reflexes normal, cerebellar intact. Cranial nerves II-XII intact. Psych: Alert and or appropriate, normal affect. Vascular: Good distal pulses, which are equal x4; capillary refill less than 2 seconds. Lymphatic, no lymphadenopathy. Result Diagram: 03/04/2561103/04/25611 Coagulation Studies Laboratory Tests Test 03/02/25 13:30 Prothrombin Time 10.9 SECONDS (9.0-12.0) INR International Normalized Ratio 1.1 INR Activated Partial Thromboplast Time 26 SECONDS (22-32) D-Dimer 1.88 MG/L FEU (0-0.50) H D-Dimer Comment Coagulation Comments Problem\Assessment\Plan Assessment Peritoneal carcinomatosis Anasarca Multiple abdominal lymphadenopathy Gastric neoplasm, rule out lymphoma, EGD completed Massive splenomegaly Liver cirrhosis associated with portal hypertension Bilateral pleural effusion right more than left Leukocytosis rule out sepsis Hyper natremia Hypertension fair control Plan IV Lasix, antibiotics CT of the chest completed additional lab work pending bilateral lower extremity ultrasound completed Blood culture sensitivity Fluid restriction diet GI doctor consult completed, appreciate assistance and expertise Order for Interventional Radiology paracentesis and thoracocentesis in He will need Oncology consultation on outpatient basis, rule out lymphoma I reconciled home medications DVT gastropathy prophylaxis addressed Sepsis Screening Reassessment Date: Mar 04, 2025 Date of Service: Mar 04, 2025 Billing Provider: RITCHIE HAWKINS MD Common Visit Codes: [id number] INP/OBS CARE(HIGH) RITCHIE HAWKINS MD Mar 04, 2025 17:03
[2025-03-05] VITALS (7 sets, daily range): BP systolic 109–121; BP diastolic 68–79; PULSE 55–64; RESP 12–22; TEMP 97.1–98.6; O2SAT 90–97
[2025-03-05 06:46] LABS: MEAN PLATELET VOLUME 10.0 FL (7.4-10.4); RED CELL DISTRIBUTION WIDTH 15.0 % (11.5-14.5)
[2025-03-05 07:07] LABS: CREATININE 0.94 MG/DL (0.60-1.10); TOTAL CARBON DIOXIDE 31.3 MMOL/L (24-32); eCRCL 75 ML/MIN; eGFR 81 ML/MIN
[2025-03-05 09:41] LABS: EOSINOPHILS % (MANUAL) 4.0 % (0-6); LYMPHOCYTES % (MANUAL) 48.0 % (21-51); MONOCYTES % (MANUAL) 6.0 % (2-12); NEUTROPHILS % (MANUAL) 21.0 % (42-75); PLATELET ESTIMATE DECREASED; REACTIVE LYMPHOCYTES % 21.0 % (0-0)
--- NOTE | 2025-03-05 18:41 | PROGRESS NOTE ---
Daily Progress Note Providers to CC ~ feel better today less abdominal pain less abdominal distention Central Line/PICC still needed: No Crandall-Non Protocol Crandall Indications Met/Not Met: F/C Indications Not Met Antibiotic Timeout Antibiotic Ordered?: Yes MRSA Education MRSA Education Provided to pt: Yes Subjective As above Objective Vital Signs Date Time Temp Pulse Resp B/P (MAP) Pulse Ox O2 Delivery O2 Flow Rate FiO2 03/05/25 15:00 98.3 60 19 113/73 (86) 95 Room Air 03/04/25 20:00 0.0 Vital signs, stable ,afebrile. Pulse Oximetry reflects adequate oxygenation. General: well developed, well nourished. Awake , alert, and oriented x4, resting comfortably in the bed, in no acute distress . Skin: Warm, dry, no pallor, no rash or petechiae. HEENT: Atraumatic, normocephalic, EOMI, anicteric sclera B; pink conjunctiva; PERRLA, normal oropharynx, moist oral and nasal mucosa. Tympanic membrane , nose , throat clear. Neck: Trachea midline. Supple, full range of motion, no JVD, bruit , hepatojugular reflex , lymphadenopathy or masses, or other lesions Cardiac: Regular rhythm, regular rate no murmurs, rubs, or gallops. Normal S1 and S2, no S3 noticed. PMI is normal. Respiratory: Equal breath sounds bilaterally, no tachypnea; lungs clear to auscultation bilaterally, no wheezing ,rub or rales, or crackles. Chest wall is symmetric and without deformity. No signs of trauma. Chest wall is nontender. No signs of respiratory distress. Resonance is normal upon percussion bilaterally. Gastrointestinal: Abdomen symmetric, descended, positive fluid wave sign, soft, non-tender, normal bowel sounds x4 quadrant, normoactive, no hepatosplenomegaly , no masses , no bruit, no flank pain bilaterally. No voluntary guarding, rebound, or rigidity. No tenderness to percussion. No pulsatile masses. Equal femoral pulses. No Sy's sign or McBurney point tenderness. Back; no CVA tenderness bilaterally, no deformities. Neck and back are without deformity as well. No tenderness noted on palpation of the spinous processes. Spinous processes are midline. Cervical, thoracic, and lumbar paraspinal muscles are not tender and are without spasm. : normal external genitalia, without lesions, swelling, masses or tenderness. Musculoskeletal: Extremities, normal range of motion, non-tender, muscle strength 5/5 x 4. Negative Homans signs bilaterally on lower extremity. Distal pulses full symmetrical, no clubbing, cyanosis , edema. Neurological: Speech is clear, alert, and oriented x 4. No motor or sensory deficit, deep tendon reflexes normal, cerebellar intact. Cranial nerves II-XII intact. Psych: Alert and or appropriate, normal affect. Vascular: Good distal pulses, which are equal x4; capillary refill less than 2 seconds. Lymphatic, no lymphadenopathy. Result Diagram: 03/05/25 0602 03/05/25 0602 Coagulation Studies Laboratory Tests Test 03/02/25 13:30 Prothrombin Time 10.9 SECONDS (9.0-12.0) INR International Normalized Ratio 1.1 INR Activated Partial Thromboplast Time 26 SECONDS (22-32) D-Dimer 1.88 MG/L FEU (0-0.50) H D-Dimer Comment Coagulation Comments Problem\Assessment\Plan Assessment Peritoneal carcinomatosis Anasarca Multiple abdominal lymphadenopathy, rule out lymphoma Gastric neoplasm, rule out lymphoma, EGD completed Massive splenomegaly Liver cirrhosis associated with portal hypertension Bilateral pleural effusion right more than left Leukocytosis rule out sepsis Hyper natremia Hypertension fair control Plan IV Lasix, antibiotics CT of the chest completed additional lab work pending bilateral lower extremity ultrasound completed Blood culture sensitivity Fluid restriction diet GI doctor consult completed, appreciate assistance and expertise Order for Interventional Radiology paracentesis and thoracocentesis in He will need Oncology consultation on outpatient basis, rule out lymphoma I reconciled home medications DVT gastropathy prophylaxis addressed Sepsis Screening Reassessment Date: Mar 05, 2025 Date of Service: Mar 05, 2025 Billing Provider: RITCHIE HAWKINS MD Common Visit Codes: [id number] INP/OBS CARE(HIGH) RITCHIE HAWKINS MD Mar 05, 2025 18:41
[2025-03-06] VITALS (9 sets, daily range): BP systolic 110–122; BP diastolic 63–73; PULSE 54–68; RESP 14–24; TEMP 98–98.9; O2SAT 92–98
[2025-03-06 05:15] LABS: CARBOHYDRATE ANTIGEN 19-9 5.0 U/mL (0-35)
[2025-03-06 07:37] LABS: MEAN PLATELET VOLUME 9.8 FL (7.4-10.4); RED CELL DISTRIBUTION WIDTH 14.9 % (11.5-14.5)
[2025-03-06 07:49] LABS: CREATININE 1.19 MG/DL (0.60-1.10); TOTAL CARBON DIOXIDE 31.9 MMOL/L (24-32); eCRCL 59 ML/MIN; eGFR 62 ML/MIN
[2025-03-06 08:25] LABS: EOSINOPHILS % (MANUAL) 3.0 % (0-6); LYMPHOCYTES % (MANUAL) 58.0 % (21-51); MONOCYTES % (MANUAL) 4.0 % (2-12); NEUTROPHILS % (MANUAL) 35.0 % (42-75)
[2025-03-06 08:26] LABS: PLATELET ESTIMATE NORMAL
[2025-03-06 11:46] LABS: BFAPPEAR TURBID; BFCOLOR PINK; BFSOURCE PERITONEAL FLD; BFVOLUME 52 ML
--- NOTE | 2025-03-06 11:56 | PROGRESS NOTE ---
Progress Note - Angio Providers to CC ~ Angio Progress Note: Paracentesis performed at bedside, RLQ access, milky white fluid removed and sample obtained. No immed complications, EBL zero. Dictated. Total volume was 3400cc. HOLLAND PERKINS MD Mar 06, 2025 11:56
[2025-03-06 12:10] LABS: GLUCOSE,BODY FLUID 141 MG/DL; LDH,BODY FLUID 210 U/L
[2025-03-06 12:38] LABS: BF RBC COUNT 36250 /CU MM; BF WBC COUNT 5250 /CU MM (0-1000); LYMPHOCYTES,BODY FLUID 90 %; MONOCYTES,BODY FLUID 6 %; NEUTROPHILS,BODY FLUID 4 %
[2025-03-06 12:55] LABS: TOTAL PROTEIN,BODY FLUID 3.9 G/DL
--- NOTE | 2025-03-06 13:04 | PROGRESS NOTE ---
Daily Progress Note Providers to CC ~ Antibiotic Timeout Antibiotic Ordered?: Yes Subjective No acute events overnight. Patient examined at bedside. No new complaints, not in acute distress. Patient denies chest pain, sob, palpitations, abdominal pain, n/v/d. Vss, labs unremarkable. Paracentesis done today. Objective Vital Signs Date Time Temp Pulse Resp B/P (MAP) Pulse Ox O2 Delivery O2 Flow Rate FiO2 03/06/25 11:00 98.2 61 16 115/70 (85) 96 Room Air 03/05/25 20:00 0.0 Result Diagram: 03/06/25 0656 03/06/25 0656 Physical Exam General: Generalized weakness, A&Ox 3, NAD HEENT: Normocephalic, PERRLA Neck: Supple, trachea midline, no JVD Chest: Clear to auscultation bilaterally Cardiovascular: RRR, S1&S2 GI: Distended, tender with palpation Extremities: No cyanosis/clubbing/or edema SEVERITY OF ILLNESS COORDINATOR: CN II-XII intact, no focal deficits Musculoskeletal: No paraspinal muscle tenderness, no muscle spasm Skin: Warm and intact Coagulation Studies Laboratory Tests Test 03/02/25 13:30 Prothrombin Time 10.9 SECONDS (9.0-12.0) INR International Normalized Ratio 1.1 INR Activated Partial Thromboplast Time 26 SECONDS (22-32) D-Dimer 1.88 MG/L FEU (0-0.50) H D-Dimer Comment Coagulation Comments Problem\Assessment\Plan Assessment & Plan Peritoneal carcinomatosis Anasarca Multiple abdominal lymphadenopathy Splenomegaly Liver cirrhosis Pleural effusions, bilateral Hypertension -s/p EGD, Lasix/spironolactone, abx, 03/06: Paracentesis done today. Needs f/u with IR Dr. Black for lymph node biopsy outpatient Date of Service: Mar 06, 2025 Billing Provider: AISLINN MAYORGA Common Visit Codes: [id number] INP/OBS CARE(HIGH) AISLINN MAYORGA Mar 06, 2025 13:04
--- NOTE | 2025-03-06 16:12 | RADIOLOGY REPORT ---
ULTRASOUND-GUIDED PARACENTESIS PRE-PROCEDURE DIAGNOSIS: Ascites POST-PROCEDURE DIAGNOSIS: Same HISTORY: Same COMPLICATIONS: None ESTIMATED BLOOD LOSS: 0 PROCEDURE: The nature, alternatives, and risks of the procedure were discussed with the patient and informed consent was disclosed. Ultrasound was used to examine the lower quadrant. An appropriate position was marked on the skin. After sterile preparation and draping, 1% Lidocaine 10 mL subcutaneous anesthesia was administered. The peritoneal space was entered at the right lower quadrant with a 5-[place] Yueh catheter. Approximately 3400 mL of milky white fluid was removed. Samples were sent to the lab for analysis. The patient tolerated the procedure well without complication. FINDINGS: Moderate-large volume milky white ascites IMPRESSION: Successful diagnostic and and therapeutic paracentesis.
[2025-03-06] MEDS: lactose-reduced food (Ensure High Protein) 237ml bottle PO SCH (17:52)
[2025-03-07 06:49] LABS: MEAN PLATELET VOLUME 9.6 FL (7.4-10.4); RED CELL DISTRIBUTION WIDTH 15.0 % (11.5-14.5)
[2025-03-07 07:00] VITALS: BP 117/71; PULSE 60; RESP 15; TEMP 98.1; O2SAT 95
[2025-03-07 07:06] LABS: CREATININE 1.02 MG/DL (0.60-1.10); TOTAL CARBON DIOXIDE 31.6 MMOL/L (24-32); eCRCL 69 ML/MIN; eGFR 74 ML/MIN
[2025-03-07] MEDS ORDERED: SPIR25TA5 PO (07:14)
[2025-03-07] MEDS ORDERED: LEVO750T68 PO (07:14)
[2025-03-07] MEDS ORDERED: FURO40TA4 PO (07:14)
[2025-03-07 07:19] LABS: LYMPHOCYTES % (MANUAL) 52.0 % (21-51); MONOCYTES % (MANUAL) 7.0 % (2-12); NEUTROPHILS % (MANUAL) 41.0 % (42-75); PLATELET ESTIMATE NORMAL
[2025-03-07 08:36] VITALS: BP_SYST 117; PULSE 60
[2025-03-07] MEDS: albumin (human) 25% 100 ML IV solution IV ONE (09:16)
--- NOTE | 2025-03-07 11:08 | DISCHARGE SUMMARY ---
Discharge Summary Providers to CC ~ Discharge Summary Admission Diagnosis: ANASARCA Hospital Course DATE OF ADMISSION: 03/02/25 DATE OF DISCHARGE: 03/07/25 Discharge Diagnosis\Comment: Peritoneal carcinomatosis Anasarca Multiple abdominal lymphadenopathy Splenomegaly Liver cirrhosis Pleural effusions, bilateral Hypertension Operations\Procedures: Paracentesis (03/06/25) Consultants: Samy Edward Dr. Complications: None Condition on DC: Stable New Medications: Furosemide 40 MG (Lasix) 40 Mg Tablet 1 TAB PO DAILY for 30 Days, #30 TAB Levofloxacin (Levofloxacin) 750 Mg Tablet 1 TAB PO DAILY for 10 Days, #10 TAB Spironolactone (Spironolactone) 25 Mg Tablet 50 MG PO DAILY for 30 Days, #60 TAB Continued Medications: Ibuprofen (Ibuprofen) 200 Mg Tablet 2 TAB PO Q6H for pain or fever for 5 Days, #40 TAB 0 Refills Ondansetron HCl (Ondansetron HCl) 4 Mg Tablet 1 TAB PO Q6H PRN PRN for nausea/vomiting, #10 TAB 0 Refills Discharge Summary: Hospital Course Feliciano Navas is a 64-year-old male with past medical history of hypertension who presented to the ED with chief complaint of abdominal distention with associated symptoms of abdominal pain and significant weight loss of 60 lb over past four months. Patient reported history of alcoholism in the far past but denied recent alcohol use, chest pain, fever, chills, dysuria, palpitations, n/v/d. Diagnostic findings were notable for CT revealing cirrhotic morphology liver, extensive conglomerate mesenteric lymphadenopathy, retroperitoneal lymphadenopathy, omental caking and peritoneal carcinomatosis consistent with malignancy, peribronchial thickening in bilateral lung bases, significant circumferential wall thickening of stomach compatible with neoplastic involvement. Patient was treated with empirical antibiotics and diuretics. Case was discussed with LOULOU Black and patient underwent paracentesis with 3400ml of peritoneal fluid removed. Patient did not experience further complications throughout the entire hospital stay and remained clinically and hemodynamically stable. Patient was seen and examined on the day of discharge. On day of discharge, vss and labs unremarkable. Preliminary blood and peritoneal fluid culture remains negative until the day of discharge. All labs, diagnostic workups, discharge plan discussed with patient in details during visit before discharge. All questions and concerns answered to the best of my professional knowledge. Patient is referred to LOULOU Black for outpatient lymph node biopsy. Patient ambulates independently without assistance. Patient is to be discharged to home to self and to follow-up with PCP and Dr. Black within 2 weeks. Physical Exam General: Generalized weakness, A&Ox 3, NAD HEENT: Normocephalic, PERRLA Neck: Supple, trachea midline, no JVD Chest: Clear to auscultation bilaterally Cardiovascular: RRR, S1&S2 GI: Soft and nontender Extremities: No cyanosis/clubbing/or edema OCC THER: CN II-XII intact, no focal deficits Musculoskeletal: No paraspinal muscle tenderness, no muscle spasm Skin: Warm and intact *Problems/Diagnosis: (1) Ascites Status: Acute Total Time Spent on D/C: > 30 Minutes Date of Service: Mar 07, 2025 Billing Provider: AISLINN MAYORGA Common Visit Codes: [id number] DISCH DAY >30min AISLINN MAYORGA Mar 07, 2025 11:08
--- NOTE | 2025-03-07 17:42 | PATHOLOGY REPORT ---
[facility] [address] [place] [address] NON-RETAIL PHARMACIST CYTOLOGY REPORT CaseNumber: [id number] Surgeon:Samy Black N.P. CLINICAL INFORMATION CLINICAL INFORMATION: Cirrhosis. Ascites. DIAGNOSIS DIAGNOSIS: ASCITES FLUID; PARACENTESIS - LYMPHOCYTOSIS. - NEGATIVE FOR MALIGNANT EPITHELIAL CELL POPULATION. COMMENT NOTE: Lymphocytosis, in general, is usually reactive. However, cytologic examination alone is unable to completely exclude a low grade lymphoproliferative process. If this is a clinical consideration, suggest flow cytometric analysis on a subsequent tap, if persistent and unexplained. MICROSCOPIC DESCRIPTION MICROSCOPIC DESCRIPTION: One H&E stained slide from cell block, one Pap stained double cytospin slide, and one Diff-Quik stained smear slide are examined. Present are blood elements. There are increased numbers of lymphocytes, small mature-appearing. Rare mesothelial cells are noted. A malignant epithelial cell population is not identified. (st) GROSS DESCRIPTION GROSS DESCRIPTION: Received labeled with the patient's name and identified as "Ascites" is 5 mL of unfixed cloudy, valerio-yellow, milky fluid. Specific gravity is 1.030. One smear for Diff-Quik, one double cytospin slide, and one cell block are prepared. The cell block is submitted as A1. The time at which the specimen was removed was 1031. The time at which the specimen was placed in formalin was 1031. (silver) Electronically signed by: Ismael Person M.D. 03/07/2025 5:05:00 PM
[2025-03-09 05:19] LABS: HBSAG SCREEN Negative (Negative); HEP A AB, IGM Negative (Negative); HEP B CORE AB, IGM Negative (Negative); HEPATITIS C VIRUS ANTIBODY Non Reactive (Non Reactive)
== END 2025-03-07 12:15 | disposition home or self-care (01) | DRG 433 ==
LOC: ER 12:03 → ED HOLD 15:52 → EDBEDREQ 19:35 → PCU 3S 19:45
PROVIDERS: ADMIT Family Medicine; ATTEND Family Medicine
PROC: BW211ZZ Computerized Tomography (CT Scan) of Abdomen and Pelvis using Low Osmolar Contrast (ICD-10-PCS; 2025-03-02)
PROC: 0DB68ZX Excision of Stomach, Via Natural or Artificial Opening Endoscopic, Diagnostic (ICD-10-PCS; 2025-03-03)
PROC: CB121ZZ Planar Nuclear Medicine Imaging of Lungs and Bronchi using Technetium 99m (Tc-99m) (ICD-10-PCS; 2025-03-04)
PROC: 0W9G3ZZ Drainage of Peritoneal Cavity, Percutaneous Approach (ICD-10-PCS; principal; 2025-03-06)
DX: K74.60 Unspecified cirrhosis of liver (principal); C78.6 Secondary malignant neoplasm of retroperitoneum and peritoneum; E87.0 Hyperosmolality and hypernatremia; R18.8 Other ascites; K76.6 Portal hypertension; I10 Essential (primary) hypertension; E11.9 Type 2 diabetes mellitus without complications; D72.829 Elevated white blood cell count, unspecified; K72.10 Chronic hepatic failure without coma; R16.1 Splenomegaly, not elsewhere classified; R59.0 Localized enlarged lymph nodes; Z72.0 Tobacco use
CPT/HCPCS: 36415; 43239; 49083; 71250; 74177; 76700; 78582; 80053; 80061; 80305; 81003; 82378; 82550; 82945; 83036; 83605; 83615; 83690; 83735; 83880; 84100; 84157; 84443; 84484; 85007; 85025; 85045; 85379; 85610; 85730; 86140; 86301; 86703; 86705; 86709; 86803; 87040; 87070; 87075; 87081; 87102; 87340; 87522; 89051; 93306; 93970; 96365; 99285; A6258; A6449; A9539; A9540; C1729; G0378; J0696; J1938; J2704; J7030; J7040; J7120; P9047; Q9967

== ENCOUNTER 2025-03-12 10:24 | Emergency (ER) | payer BC ==
[~2025-03-12] VITALS: Ht 167.6 cm; Wt 68.0 kg
[~2025-03-12 10:24] MED LIST changes: -ASPI-4 PO; +FURO40TA4 PO; -IBUP-1984 PO; +IBUP-2697 PO; +LEVO750T68 PO; +ONDA-103 PO; +SPIR25TA5 PO
[2025-03-12 10:27] VITALS: BP 134/94; PULSE 78; RESP 16; O2SAT 99
--- NOTE | 2025-03-12 12:52 | Physician Documentation ---
History of Present Illness ~ Chief Complaint: Groin Pain Stated Complaint: ABD PAIN Time Seen by MD: 10:47 Primary Medical Doctor: No PMD HPI Patient is seen today with complaints of right-sided groin swelling but no significant pain. Patient denies any previous history of hernia. Patient does state that he has had some swelling in his area previously but not as significant as he noticed this morning in the shower. Patient denies any chest pain or shortness of breath or abdominal pain or nausea, vomiting, diarrhea. Patient has no other concern or complaint at this time. Medication Reconciliation Allergies: Coded Allergies: acetaminophen (Unverified Adverse Reaction, Severe, PARANOIA, 03/12/25) hydrocodone (Unverified Adverse Reaction, Severe, PARANOIA, 03/12/25) Scheduled Furosemide 40 MG (Lasix), 1 TAB PO DAILY Ibuprofen (Ibuprofen), 2 TAB PO Q6H, (Reported) Levofloxacin (Levofloxacin), 1 TAB PO DAILY Spironolactone (Spironolactone), 50 MG PO DAILY Scheduled PRN Ondansetron HCl (Ondansetron HCl), 1 TAB PO Q6H PRN PRN for nausea/vomiting, (Reported) Past Medical History Past Medical History: Diabetes Past Surgical History: no surgical history Alcohol Use: None Review of Systems Constitutional: Denies: chills, fever, weakness Eyes: Denies: pain, blurred vision ENT: Denies: ear pain, nose pain, throat pain, mouth pain Respiratory: Denies: cough, shortness of breath Cardiovascular: Denies: chest pain, palpitations Gastrointestinal: Denies: abdominal pain, nausea, vomiting Genitourinary: Denies: burning, dysuria Male Genitalia: Denies: penile discharge, testicular pain Neurological: Denies: headache, dizziness Musculoskeletal: Denies: pain, swelling Integumentary: Denies: rash, lesions Allergic/Immunologic: Denies: hives, itching Hematologic/Lymphatic: Denies: no symptoms reported Psychiatric: Denies: depression, anxiety Physical Exam Vital Signs: Temperature: 98.4, Source: Temporal, Heart Rate: 78, Respiratory Rate: 16, BP: 134/94, Pulse Oximetry: 99, Weight: 68.000 Oxygen Flow Rate: 0 Physical Exam General: Awake and Alert, no acute distress. HEENT: Conjunctiva pink, Sclera clear, Mucus Membranes moist. Neck: Supple without masses and tenderness. Resp: Unlabored. Lungs clear to auscultation bilaterally. Heart: Regular Rate and rhythm, normal S1 and S2 without murmur, rub or gallop. Abdomen: Abdomen is soft, nondistended, nontender, no rebound, no guarding. Terry nowak does have reducible right inguinal hernia on exam. Tender to palpation. Extremities: No cyanosis,clubbing or edema. Skin: Warm and Dry. Progress Results/Orders Results/Orders Vital Signs 03/12/25 10:27 Temp 98.4 Pulse 78 Resp 16 B/P (MAP) 134/94 Pulse Ox 99 O2 Flow Rate 0 Medical Decision Making Findings Patient is seen today with complaints of right-sided groin swelling but no significant pain. Patient denies any previous history of hernia. Patient does state that he has had some swelling in his area previously but not as significant as he noticed this morning in the shower. Patient denies any chest pain or shortness of breath or abdominal pain or nausea, vomiting, diarrhea. Patient has no other concern or complaint at this time. Patient does on exam have reducible right inguinal hernia. Patient will follow up with primary care for referral to general surgeon if needed for consult. Return to ED with any worsening, concerning or changing symptoms. Departure Disposition: 01 HOME / SELF CARE / HOMELESS Impression: Primary Impression: Right inguinal hernia Condition: Stable Discharge Instructions: Hernia Additional Instructions: Patient does on exam have reducible right inguinal hernia. Patient will follow up with primary care for referral to general surgeon if needed for consult. Return to ED with any worsening, concerning or changing symptoms. Referrals: NO PRIMARY CARE PROVIDER (PCP) Signature Scribe Signature: No scribe Attestation: No scribe JACKIE GOODRICH PAC Mar 12, 2025 12:52
[2025-03-12 13:25] VITALS: TEMP 98.4
== END 2025-03-12 13:26 | disposition home or self-care (01) ==
LOC: ER 10:25
DX: K40.90 Unilateral inguinal hernia, without obstruction or gangrene, not specified as recurrent (principal); E11.9 Type 2 diabetes mellitus without complications; Z88.5 Allergy status to narcotic agent
CPT/HCPCS: 99282

== ENCOUNTER 2025-04-12 10:44 | Day surgery (SDC) | payer BC ==
[~2025-04-12] VITALS: Ht 167.6 cm; Wt 68.0 kg
[2025-04-12] VITALS (13 sets, daily range): BP systolic 104–133; BP diastolic 68–80; PULSE 72–85; RESP 15–16; TEMP 98.1; O2SAT 93–96
[~2025-04-12 10:44] MED LIST changes: -FURO40TA4 PO; -LEVO750T68 PO
[2025-04-12] MEDS ORDERED: DOCU-148 PO (11:20)
[2025-04-12] MEDS ORDERED: FURO40TA4 PO (11:20)
[2025-04-12 11:34] LABS: MEAN PLATELET VOLUME 9.1 FL (7.4-10.4); RED CELL DISTRIBUTION WIDTH 14.7 % (11.5-14.5)
[2025-04-12 11:48] LABS: CREATININE 1.12 MG/DL (0.60-1.10); TOTAL CARBON DIOXIDE 26.5 MMOL/L (24-32); eCRCL 61 ML/MIN; eGFR 66 ML/MIN
[2025-04-12 11:56] LABS: BANDS% (MANUAL) 1.0 % (0-10); LYMPHOCYTES % (MANUAL) 59.0 % (21-51); MONOCYTES % (MANUAL) 8.0 % (2-12); NEUTROPHILS % (MANUAL) 32.0 % (42-75); PLATELET ESTIMATE NORMAL
[2025-04-12] MEDS ORDERED: gelatin sponge, absorbable (Gelfoam 12-7MM) sponge TP ONE (16:38)
--- NOTE | 2025-04-12 17:28 | PROGRESS NOTE ---
H&P - Interval Note Providers to CC ~ Patient examined and condition: Yes Interval changes as follows: Paper H and P in chart today. Risks benefits alt of stomach mass biopsy which is suspicious for lymphoproliferative disorder d/w pt and informed consent disclosed. Mal 2 ASA 2. Will proceed. HOLLAND PERKINS MD Apr 12, 2025 17:28
--- NOTE | 2025-04-12 17:37 | PROGRESS NOTE ---
H&P - Interval Note Providers to CC ~ Patient examined and condition: Yes Interval changes as follows: Paper H and P in chart today. Large symmetric marked stomach wall thickening possibly representing lymphoproliferative disorder. Risks benefits alt of CT biopsy d/w pt and informed consent disclosed. MAL 2 ASA 2. HOLLAND PERKINS MD Apr 12, 2025 17:37
--- NOTE | 2025-04-12 17:58 | PROGRESS NOTE ---
Progress Note - Angio Providers to CC ~ Angio Progress Note: S/P FNA of 18 g and 20 g of markedly thickened stomach wall. No immed complications. EBL zero. Dictated. HOLLAND PERKINS MD Apr 12, 2025 17:58
--- NOTE | 2025-04-12 18:23 | RADIOLOGY REPORT ---
CT BIOPSY of markedly thickened concentric gastric mass HISTORY: Markedly enlarged gastric wall. Findings are suspicious for lymphomatous proliferation. MEDICATIONS: 4 mL 1% lidocaine The patient did not require conscious sedation DLP: 989.54 mGycm ESTIMATED BLOOD LOSS: None PROCEDURE: CT-guided gastric wall mass biopsy TECHNIQUE: Following a thorough discussion of the risks, alternatives, and benefits of the procedure, informed consent was obtained from the patient. All questions were answered appropriately and thoroughly. Patient was placed in the scanner in a supine position. Scans of the upper abdomen were obtained. The skin was marked. It was prepped and draped in a sterile fashion. Local anesthesia was applied. A 19 gauge guiding needle was placed in to the anterior margin of the lower body of the stomach lesion. 2 separate 22-gauge needle followed by a single gauge FNA biopsies were obtained. Specimens were placed in formalin and RPMI and sent to the laboratory. Postoperative CT images were obtained, demonstrating no evidence of extravasation or hematoma and no change in anterior gastric wall thickness. FINDINGS: CT images were obtained with the biopsy needle within the lesion. IMPRESSION: CT-guided markedly thickened anterior gastric wall mass biopsy.
== END 2025-04-12 18:00 | disposition home or self-care (01) ==
LOC: SSTAY O 10:44
PROVIDERS: ATTEND Radiology Diagnostic Radiology
DX: R22.2 Localized swelling, mass and lump, trunk (principal); G51.0 Bell's palsy
CPT/HCPCS: 49180; 77012; 80053; 85025; J7030; 85007; A4615